=== PATIENT | female | born 1950 | race Caucasian/White ===

== ENCOUNTER 2016-07-23 06:34 | Inpatient (IN) | payer OTHER, MEDICARE ==
[2016-07-18 11:57] LABS: EOSINOPHILS # (AUTO) 0.1 K/uL (0.0-0.4); LYMPHOCYTES # (AUTO) 2.1 K/uL (1.0-5.5); MEAN CORPUSCULAR HEMOGLOBIN 30 pg (27-31)
[2016-07-18 11:59] LABS: CALCIUM 9.1 mg/dL (8.4-11.0); CREATININE 0.79 mg/dL (0.55-1.30); POTASSIUM 4.1 mmol/L (3.5-5.1)
[2016-07-18 12:00] LABS: BASOPHILS % (AUTO) 0.4 % (0.0-2.0); EOSINOPHILS % (AUTO) 1.1 % (0.0-4.0); LYMPHOCYTES % (AUTO) 23.5 % (20.5-51.5); MEAN CORPUSCULAR HGB CONC 33 % (32-36); MEAN CORPUSCULAR VOLUME 89 fL (79.0-98.0); MONOCYTES # (AUTO) 0.5 K/uL (0.0-1.0); MONOCYTES % (AUTO) 5.2 % (1.7-9.3); NEUTROPHILS # (AUTO) 6.3 K/uL (1.8-7.7); NEUTROPHILS % (AUTO) 69.8 % (40.0-70.0); PLATELET COUNT (AUTO) 146 K/uL (130-430); RED BLOOD CELL COUNT(AUTO) 5.06 MIL/uL (4.2-6.2); RED CELL DISTRIBUTION WIDTH 11.8 % (9.0-15.0)
[2016-07-18 12:03] LABS: PROTHROMBIN TIME 10.7 SECS (9.5-12.5)
[2016-07-18 12:09] LABS: BILIRUBIN,URINE NEGATIVE (NEGATIVE); CLARITY/URINE CLEAR (CLEAR); COLOR,URINE YELLOW (YELLOW); GLUCOSE,URINE NEGATIVE (NEGATIVE); KETONES,URINE NEGATIVE (NEGATIVE); LEUKOCYTE ESTERASE ,URINE NEGATIVE (NEGATIVE); NITRITE, URINE NEGATIVE (NEGATIVE); PROTEIN URINE NEGATIVE (NEGATIVE); UROBILINOGEN,URINE 0.2 (0.2-1.0)
[2016-07-18 12:11] LABS: BLOOD, URINE TRACE (NEGATIVE)
[2016-07-18 12:22] LABS: BACTERIA,URINE RARE /HPF (None Seen); RBC,URINE 0-3 /HPF (0-3); WBC,URINE NONE SEEN /HPF (0-3)
[~2016-07-23] VITALS: Ht 167.6 cm; Wt 79.4 kg
[2016-07-23] MEDS ORDERED: CEFAZOLIN SOD 2 GM in D5W 50 ML IV ONE (07:00)
[2016-07-23] MEDS ORDERED: TRANEXAMIC ACID 1,000 MG/10 ML VIAL IV ONE (07:15)
[2016-07-23] MEDS ORDERED: POLYMYXIN 500,000/BACIT.10,000 UNITS in NS IRR 1 L IR ONE (07:43)
[2016-07-23] MEDS ORDERED: DEXAMETHASONE SOD PHOSPHATE 4 MG/ML VIAL IVP ONE (07:54)
[2016-07-23] MEDS ORDERED: LR 1,000 ML IV.SOLN IV ONE (07:54)
[2016-07-23] MEDS ORDERED: fentaNYL CITRATE 250 MCG/5 ML AMP IV ONE (07:54)
[2016-07-23] MEDS ORDERED: SEVOFLURANE 15 MIN GAS INH ONE (07:54)
[2016-07-23] MEDS ORDERED: VANCOMYCIN HCL 1000 MG/VIAL IV ONE (07:54)
[2016-07-23] MEDS ORDERED: MORPHINE SULFATE 10MG/10ML PF AMP EP ONE (07:54)
[2016-07-23] MEDS ORDERED: METOCLOPRAMIDE HCL 10 MG/2 ML VIAL IVP ONE (07:54)
[2016-07-23] MEDS ORDERED: PROPOFOL 200MG/ 20ML VIAL (DIPRIVAN) IV ONE (07:54)
[2016-07-23] MEDS ORDERED: MIDAZOLAM HCL 5 MG/5 ML VIAL IVP ONE (07:54)
[2016-07-23] MEDS ORDERED: METO25TA3 PO (08:12)
[2016-07-23] MEDS ORDERED: ASPI-1063 PO (08:12)
[2016-07-23] MEDS ORDERED: LR 1,000 ML IV ONE (09:40)
[2016-07-23] MEDS ORDERED: KETOROLAC TROMETHAMINE 30 MG VIAL IM PRN (09:45)
[2016-07-23] MEDS ORDERED: NALBUPHINE HCL 10 MG/ML AMP IVP PRN (09:45)
[2016-07-23] MEDS ORDERED: ONDANSETRON HCL 4 MG/2 ML VIAL IVP PRN ×2 (09:45)
[2016-07-23] MEDS ORDERED: NALOXONE HCL 0.4 MG/ML AMP (NARCAN) IVP PRN ×2 (09:45→12:45)
[2016-07-23] MEDS ORDERED: fentaNYL CITRATE/PF 100 MCG/2 ML AMP IVP PRN (09:45)
[2016-07-23] MEDS ORDERED: ePHEDrine sulfate 50 MG/ML VIAL IVP PRN (09:45)
[2016-07-23] MEDS ORDERED: DIPHENHYDRAMINE INJ 50 MG/ML VIAL IVP PRN (09:45)
[2016-07-23] MEDS ORDERED: ACETAMINOPHEN 325 MG TABLET PO PRN (10:30)
[2016-07-23] MEDS ORDERED: DIPHENHYDRAMINE HCL 25 MG CAPSULE PO PRN (10:30)
[2016-07-23] MEDS ORDERED: PROMETHAZINE HCL 25 MG/ML AMP IVP PRN (10:30)
[2016-07-23 11:00] VITALS: BP 99/67; PULSE 74; RESP 17; TEMP 98.4; O2SAT 98
--- NOTE | 2016-07-23 11:18 | NUR ---
POST OP ADMISSION NOTES: REPORT GIVEN AT BEDSIDE BY PACU NURSE CORREA. PATIENT ADMITTED WITH DIAGNOSES OF S/P LEFT TOTAL KNEE ARTHROPLASTY.PT AWAKE,ALERT AND ORIENTED X4. WITH LEFT KNEE DRESSING AND POLAR CARE ATTACHED,DRY AND INTACT. WITH HEMOVAC AT LEFT KNEE,REDDISH COLOR IN THE CONTAINER. WITH MORLEY DRAINING TO YELLOW URINE. IVF ON GOING AT LEFT WRIST INTACT. SCD'S AT RIGHT LOWER EXTREMITY. WITH PILLOW UNDERNEATH LEFT ANKLE.WITH ANTIEMBOLITIC STOCKING ON.PT DENIES ANY PAIN THIS TIME. PLACED PT ON TELEMETRY ORDERED.
--- NOTE | 2016-07-23 11:45 | NUR ---
ADDED NOTES: PATIENT ORIENTED TO CALL LIGHT ,HOSPITAL ROUTINES AND SAFETY MEASURES RENDERED.PT VERBALIZED UNDERSTANDING.
[2016-07-23 11:47] VITALS: BP 99/67; PULSE 74; RESP 17; TEMP 98.3; O2SAT 98
[2016-07-23] MEDS: HYDROMORPHONE PCA 10 mg/50 mL IV PRN (13:27)
--- NOTE | 2016-07-23 13:28 | NUR ---
CONSULT CONSULT WAS CALLED FOR P/O MED MANAGE. SPOKE WITH ANTHONY Salazar
--- NOTE | 2016-07-23 13:30 | NUR ---
business instructor: spinal wears off,pt c/o pain ,business instructor dilaudid started as ordered.
--- NOTE | 2016-07-23 14:35 | NUR ---
rounds: resting.left knee dressing dry and intact. cpm on .pain controlled with vice president network development dilaudid per pt.
--- NOTE | 2016-07-23 15:21 | NUR ---
rounds: pt comfortable.pain controlled with netezza developer dilaudid per patient.
[2016-07-23] MEDS: D5LR 1,000 ML IV SCH ×2 (16:11→20:30)
[2016-07-23] MEDS: CEFAZOLIN 1 GM IVPB PREMIX 50 ML IV SCH ×2 (16:11→21:18)
--- NOTE | 2016-07-23 16:16 | NUR ---
ROUNDS: PATIENT TALKING TO THE PHONE. PAIN CONTROLLED WITH PATENT PARALEGAL DILAUDID PER PATIENT. LEFT KNEE DRESSING DRY AND INTACT.HEMOVAC IN PLACED. NEURO ROB WITH IN NORMAL LIMIT.
[2016-07-23 16:37] VITALS: BP 111/67; PULSE 73; RESP 17; TEMP 97.3; O2SAT 98
--- NOTE | 2016-07-23 17:59 | NUR ---
rounds: dinner tray served by sports manager. with visitor's at bedside.
--- NOTE | 2016-07-23 18:29 | NUR ---
CLOSING NOTES: PATIENT STATED NOT HUNGRY,ENCOURAGE TO ASK FOR SNACKS LATER IF SHE GETS HUNGRY. PAIN CONTROLLED WITH ACCOUNTING OFFICER DILAUDID PER PATIENT. LEFT KNEE CPM ON AND WITH DRY DRESSING INTACT.WITH MORLEY IN SITU. HEMOVAC IN PLACED. IVF ON GOING WITH ACCOUNTING OFFICER DILAUDID IN PLACED. CONTINUE TO MONITOR.CALL LIGHT WITHIN REACH.STABLE.
--- NOTE | 2016-07-23 19:29 | NUR ---
PM ASSESSMENT PT. A/OX4, VITAL SIGNS STABLE, NO DISTRESS NOTED, DENIES PAIN, PT. ON PETROLOGY TEACHER DILAUDID, NOTED WITH DRESSING TO LEFT KNEE, POLAR CARE IN PLACE, CPM IN PLACE, PEDAL PULSES PRESENT, PT. ABLE TO WIGGLE TOES, PT. ABLE TO FLEX AND EXTEND FEET BILATERALLY, NOTED WITH SCD TO R. KNEE, UPDATED WITH PLAN OF CARE, ENCOURAGED PT. TO USE CALL LIGHT FOR ASSISTANCE, CALL LIGHT WITHIN REACH, WILL CONTINUE TO MONITOR.
[2016-07-23 19:55] VITALS: BP 105/66; PULSE 76; RESP 18; TEMP 98.8; O2SAT 96
--- NOTE | 2016-07-23 20:14 | NUR ---
INCENTIVE SPIROMETER ENCOURAGED USE OF INCENTIVE SPIROMETER 10X/HR WHILE AWAKE, PT. ABLE TO DEMONSTRATE PROPER USE UP TO 1500.
[2016-07-23] MEDS ORDERED: SENNOSIDES 8.6 MG TABLET PO PRN (21:00)
--- NOTE | 2016-07-23 22:03 | NUR ---
RN ROUNDS PT. RESTING QUIETLY, VITAL SIGNS STABLE, NO DISTRESS NOTED, DENIES PAIN. REPOSITIONED WITH PILLOW SUPPORT, CALL LIGHT WITHIN REACH, WILL CONTINUE TO MONITOR.
[2016-07-24] VITALS: BP 107/64; PULSE 86; RESP 18; TEMP 99.3
--- NOTE | 2016-07-24 | NUR ---
CPM REMOVED CPM REMOVED SAFELY, PILLOW FOLDED IN HALF AND PLACED UNDER LEFT ANKLE.
--- NOTE | 2016-07-24 01:51 | NUR ---
DESATURATION PT. DESATURATING TO 88% ON ROOM AIR, PT. WAS SLEEPING, PT. WOKEN UP, ENCOURAGED TO TAKE DEEP BREATHS, O2 SAT. WENT UP TO 90%. INITIATED O2 AT 2L VIA NASAL CANNULA, O2 SATURATION WENT UP TO 98%. WILL CONTINUE TO MONITOR.
--- NOTE | 2016-07-24 03:50 | NUR ---
RN ROUNDS PT. RESTING QUIETLY, VITAL SIGNS STABLE, NO DISTRESS NOTED, DENIES PAIN, CALL LIGHT WITHIN REACH, WILL CONTINUE TO MONITOR.
[2016-07-24 04:00] VITALS: BP 103/63; PULSE 83; RESP 18; TEMP 98.7; O2SAT 96
[2016-07-24] MEDS: D5LR 1,000 ML IV SCH ×2 (05:17→16:58)
[2016-07-24] MEDS: CEFAZOLIN 1 GM IVPB PREMIX 50 ML IV SCH (05:17)
--- NOTE | 2016-07-24 05:30 | NUR ---
RN ROUNDS PT. RESTING QUIETLY, VITAL SIGNS STABLE, NO DISTRESS NOTED, DENIES PAIN, CALL LIGHT WITHIN REACH, WILL CONTINUE TO MONITOR.
--- NOTE | 2016-07-24 06:26 | NUR ---
CLOSING NOTES PT. RESTING QUIETLY, VITAL SIGNS STABLE, NO DISTRESS NOTED, DENIES PAIN, MORLEY CATHETER IN PLACE, PILLOW IN PLACE TO LEFT ANKLE, POLAR CARE IN PLACE. CALL LIGHT WITHIN REACH.
[2016-07-24 06:37] LABS: CALCIUM 8.1 mg/dL (8.4-11.0); CREATININE 0.73 mg/dL (0.55-1.30); POTASSIUM 3.4 mmol/L (3.5-5.1)
[2016-07-24 07:03] LABS: HEMATOCRIT 33.8 % (36-48); HEMOGLOBIN 11.4 g/dL (12.0-16.0); MEAN CORPUSCULAR HEMOGLOBIN 30 pg (27-31); MEAN CORPUSCULAR HGB CONC 34 % (32-36); MEAN CORPUSCULAR VOLUME 90 fL (79.0-98.0); PLATELET COUNT (AUTO) 126 K/uL (130-430); RED BLOOD CELL COUNT(AUTO) 3.75 MIL/uL (4.2-6.2); RED CELL DISTRIBUTION WIDTH 12.1 % (9.0-15.0)
[2016-07-24 07:29] LABS: WHITE BLOOD COUNT (AUTO) 12.9 K/uL (4.8-10.8)
[2016-07-24 08:00] VITALS: BP 111/68; PULSE 86; RESP 20; TEMP 98; O2SAT 93
--- NOTE | 2016-07-24 08:00 | NUR ---
OPENING NOTE PATIENT IS AWAKE, BUT DROWSY. REPORTS PAIN AT A TOLERABLE LEVEL WHEN RESTING. NO SIGNS OF DISTRESS. 20 VIA NC NEEDED. PT IS 93% ON ROOM AIR. LUNGS ARE CLEAR, REEDUCATED ON USE OF IS MACHINE.
[2016-07-24] MEDS ORDERED: POTASSIUM CHLORIDE 20 MEQ/PKT PACKET PO ONE (08:15)
[2016-07-24] MEDS ORDERED: ASPIRIN 81 MG TABLET(ECOTRIN) PO SCH (09:00)
[2016-07-24] MEDS: HYDROcodone/ACETAMIN 7.5-325 MG TAB PO PRN (09:03)
[2016-07-24] MEDS: RIVAROXABAN 10 MG TABLET PO SCH (09:04)
[2016-07-24] MEDS: METOPROLOL SUCCINATE 25 MG TAB.SR.24H (TOPROL XL) PO SCH (09:04)
[2016-07-24] MEDS: ASPIRIN 81 MG TABLET(ECOTRIN) PO SCH (09:04)
--- NOTE | 2016-07-24 09:30 | NUR ---
PATIENT AMBULATED WITH WALKER FROM BED TO WALL ACROSS DUNN FROM ROOM WITH PT. PT BECAME PALE, DIAPHORETIC AND WEAK AND WAS PLACED IN A CHAIR. SBP IN 70'S. PLACED IN BED SBP AT 94. 10 MINUTES LATER SPB OVER 100 AND PATIENT REPORTED FEELING BETTER. DENIES ANY NAUSEA, CHEST PAIN, FAINTNESS OR OTHER SUBJECTIVE SYMPTOMS
--- NOTE | 2016-07-24 09:39 | NUR ---
Nutrition Update Ish Scale 18 noted. Pt admitted for osteoarthritis L knee. Diet: regular BMI: 28.2 kg/m2 RD to follow per nutrition care standards.
[2016-07-24 09:52] LABS: ATYPICAL LYMPHOCYTES % 0 % (0-0); BAND % (MANUAL) 0 % (0-6); BASOPHILS % (MANUAL) 0 % (0-2); EOSINOPHILS % (MANUAL) 0 % (0-7); LYMPHOCYTES % (MANUAL) 8 % (20-46); MONOCYTES % (MANUAL) 7 % (0-11)
--- NOTE | 2016-07-24 09:52 | NUR ---
DISCHARGE PLANNING DC planning order to arrange home PT, CPM, FWW, and commode. CM met with patient. [facility]ed [facility] order [phone] for CPM and FWW requesting to be delivered to patient home. Home Health PT pending additional PT notes. DCP will follow up. Addendum: 07/24/16 at 6568 by Indira KRUEGER Spoke with Sheridan in intake dept at [facility] who stated CPM not covered benefit under Medicare. RX order will be faxed requesting for signature. Once signed Rx order has been received delivery arrangements can be made.
--- NOTE | 2016-07-24 12:00 | NUR ---
PATIENT PLACED ON CPM MACHINE BY PT/ TO BE ON UNTIL 2300
[2016-07-24 12:29] VITALS: BP 101/66; PULSE 84; RESP 16; TEMP 98.7; O2SAT 97
--- NOTE | 2016-07-24 13:55 | NUR ---
DR CERVANTES NOTIFIED OF PATIENT'S MRSA COLONIZATION. PATIENT MADE AWARE OF SITUATION BY RN. NO NEW ORDERS GIVEN.
--- NOTE | 2016-07-24 15:15 | NUR ---
PHYSICAL THERAPY CO-SIGN The Physical Therapy Progress Notes documented by Hand Ii Tube Bender have been reviewed. Pt IS SHOWING PROGRESS WITH POC; CONT PER TX PLAN Reviewed/Co-Signed by: Talia Eugene PT Documentation Done by: ADOLFO POWERS KALSOMINER Addendum: 07/24/16 at 1515 by Talia Eugene PT Amended: Links added.
[2016-07-24 16:12] VITALS: BP 114/77; PULSE 93; RESP 18; TEMP 97.4; O2SAT 94
--- NOTE | 2016-07-24 16:58 | NUR ---
PATIENT HAS BEEN SLEEPING FOR MOST OF DAY. EASILY AROUSABLE AND WILL USE IS MACHINE INTERMITTENTLY. HAS BEEN AT BEDSIDE THROUGHOUT THE DAY.
--- NOTE | 2016-07-24 19:15 | NUR ---
PM ASSESSMENT PT. STARTED VOMITING LARGE AMOUNT OF BROWN EMESIS, HOB ELEVATED, TOWELS PROVIDED, VITAL SIGNS STABLE, WILL GIVE ZOFRAN. NOTED WITH FOOT SETTER DILAUDID, PT. STATED HER PAIN LEVEL IS 6/10 TO HER LEFT KNEE AND SHE WILL PRESS HER FOOT SETTER BUTTON. NOTED WITH LEFT KNEE DRESSING AND POLAR CARE, NOTED WITH SCD TO RIGHT LOWER LEG, MORLEY DRAINING WELL TO GRAVITY. CALL LIGHT WITHIN REACH, WILL CONTINUE TO MONITOR.
[2016-07-24 20:00] VITALS: BP 106/61; PULSE 80; RESP 18; TEMP 99; O2SAT 94
[2016-07-24] MEDS: ONDANSETRON HCL 4 MG/2 ML VIAL IVP PRN (20:12)
--- NOTE | 2016-07-24 20:12 | NUR ---
NAUSEA/VOMITING PT. VOMITED LARGE AMOUNT OF BROWN EMESIS AT CHANGE OF SHIFT, BED BATH DONE, NEW GOWN APPLIED, NEW BED SHEETS APPLIED, ZOFRAN 4 MG IVP GIVEN.
--- NOTE | 2016-07-24 22:00 | NUR ---
RN ROUNDS PT. RESTING QUIETLY, VITAL SIGNS STABLE, NO DISTRESS NOTED, DENIES PAIN, DENIES NAUSEA, WILL CONTINUE TO MONITOR.
--- NOTE | 2016-07-25 | NUR ---
RN ROUNDS PT. RESTING QUIETLY, VITAL SIGNS STABLE, NO DISTRESS NOTED, DENIES PAIN, DENIES NAUSEA, WILL CONTINUE TO MONITOR.
[2016-07-25 01:53] VITALS: BP 95/53; PULSE 53; RESP 17; TEMP 97.8; O2SAT 96
--- NOTE | 2016-07-25 02:00 | NUR ---
RN ROUNDS PT. RESTING QUIETLY, VITAL SIGNS STABLE, NO DISTRESS NOTED, DENIES PAIN, DENIES NAUSEA, REPOSITIONED WITH PILLOW SUPPORT, CALL LIGHT WITHIN REACH, WILL CONTINUE TO MONITOR.
[2016-07-25] MEDS: D5LR 1,000 ML IV SCH ×3 (03:28→20:42)
[2016-07-25] MEDS: HYDROMORPHONE PCA 10 mg/50 mL IV PRN (03:37)
[2016-07-25] MEDS: ONDANSETRON HCL 4 MG/2 ML VIAL IVP PRN (03:39)
--- NOTE | 2016-07-25 03:39 | NUR ---
NAUSEA PT. C/O NAUSEA, ZOFRAN 4 MG IVP GIVEN ORDERED. WILL CONTINUE TO MONITOR.
[2016-07-25 03:44] VITALS: BP 99/57; PULSE 77; RESP 18; TEMP 98.6; O2SAT 98
--- NOTE | 2016-07-25 06:26 | NUR ---
CLOSING NOTES PT. RESTING QUIETLY, VITAL SIGNS STABLE, NO DISTRESS NOTED, DENIES PAIN, DENIES NAUSEA, REPOSITIONED WITH PILLOW SUPPORT.
[2016-07-25 06:45] LABS: CALCIUM 8.3 mg/dL (8.4-11.0); CREATININE 0.58 mg/dL (0.55-1.30); POTASSIUM 3.3 mmol/L (3.5-5.1)
[2016-07-25 07:28] LABS: BASOPHILS % (AUTO) 0.2 % (0.0-2.0); HEMATOCRIT 33.1 % (36-48); LYMPHOCYTES % (AUTO) 6.1 % (20.5-51.5); MEAN CORPUSCULAR HEMOGLOBIN 30 pg (27-31); MEAN CORPUSCULAR HGB CONC 33 % (32-36); MEAN CORPUSCULAR VOLUME 89 fL (79.0-98.0); MONOCYTES # (AUTO) 0.8 K/uL (0.0-1.0); MONOCYTES % (AUTO) 5.4 % (1.7-9.3); NEUTROPHILS # (AUTO) 13.8 K/uL (1.8-7.7); NEUTROPHILS % (AUTO) 88.3 % (40.0-70.0); RED BLOOD CELL COUNT(AUTO) 3.72 MIL/uL (4.2-6.2); RED CELL DISTRIBUTION WIDTH 11.8 % (9.0-15.0)
[2016-07-25 07:38] LABS: WHITE BLOOD COUNT (AUTO) 15.6 K/uL (4.8-10.8)
[2016-07-25 08:00] VITALS: BP 103/69; PULSE 91; RESP 18; TEMP 98.1; O2SAT 94
[2016-07-25] MEDS ORDERED: HYDROmorphone 1 MG INJ. 1 MG/ML AMPUL IVP PRN (08:00)
--- NOTE | 2016-07-25 08:00 | NUR ---
PATIENT A/OX4. IV ON LEFT WRIST, #20, INFUSING D5LR AT 100ML/HR. F/C IN PLACE, CLINICAL PROGRAM COORDINATOR IS STILL ON. CALL LIGHT IN PLACE, BED LOCKED AT LOWEST POSITION, WILL CONTINUE TO MONITOR.
[2016-07-25] MEDS: ASPIRIN 81 MG TABLET(ECOTRIN) PO SCH (08:50)
[2016-07-25] MEDS: RIVAROXABAN 10 MG TABLET PO SCH (08:50)
[2016-07-25] MEDS: METOPROLOL SUCCINATE 25 MG TAB.SR.24H (TOPROL XL) PO SCH (09:00)
[2016-07-25] MEDS ORDERED: IPRATROPIUM BROM 0.5 MG/2.5 ML VIAL.NEB (ATROVENT) INH PRN (09:30)
[2016-07-25] MEDS ORDERED: ALBUTEROL SULFATE 0.083% 2.5 MG/3 ML VIAL.NEB INH PRN (09:30)
--- NOTE | 2016-07-25 09:35 | NUR ---
F/C REMOVED, STEAM CLEANER D/C PER DR ORDER.
[2016-07-25 10:02] LABS: PLATELET COUNT (AUTO) 116 K/uL (130-430)
--- NOTE | 2016-07-25 10:06 | NUR ---
[phone] spoke with Zuleika in intake dept who will have RX order request to be signed. Will follow up. Addendum: 07/25/16 at 1127 by Indira Landin DP Spoke with Sheridan in intake dept at [facility]. Confirmed faxed RX order received and copy placed in patient chart and faxed to Dr Purvis office requesting signature. DCP will fax back once signed RX order has been received. ROSLYN Singer was made aware. Addendum: 07/25/16 at 6692 by Indira Landin DP Confirmed with farm owner operator at Dr Purvis office faxed order for FWW was received and will have sign and fax back. Faxed home health referral to [facility] [phone]. Will follow up.
[2016-07-25 11:09] VITALS: PULSE 78
[2016-07-25] MEDS: ALBUTEROL SULFATE 0.083% 2.5 MG/3 ML VIAL.NEB INH SCH ×4 (11:09→23:00)
[2016-07-25] MEDS: IPRATROPIUM BROM 0.5 MG/2.5 ML VIAL.NEB (ATROVENT) INH SCH ×4 (11:09→23:00)
[2016-07-25] MEDS: HYDROcodone/ACETAMIN 7.5-325 MG TAB PO PRN ×2 (11:13→23:26)
--- NOTE | 2016-07-25 12:00 | NUR ---
1200 V/S REFUSED PT WAS SLEEPING. FAMILY ASKED IF PT COULD REST AND DO NOT BE DISTURBED FOR V/S. ROSLYN SCHULTZ IS NOTIFIED AND AWARE.
[2016-07-25] MEDS: LEVOFLOXACIN 500 MG/D5W 100 ML IV SCH (14:26)
--- NOTE | 2016-07-25 15:27 | NUR ---
PHYSICAL THERAPY CO-SIGN The Physical Therapy Progress Notes documented by Lime Spreader have been reviewed. I CONCUR W/RANCH SUPERVISOR NOTE; CONT PER TX PLAN Reviewed/Co-Signed by: Talia Eugene PT Documentation Done by: ADOLFO POWERS RANCH SUPERVISOR Addendum: 07/25/16 at 1528 by Talia Eugene PT Amended: Links added.
--- NOTE | 2016-07-25 17:20 | NUR ---
K AT 3.3. DR. CERVANTES IS CALLED, AWAITING CALL BACK.
--- NOTE | 2016-07-25 18:00 | NUR ---
PATIENT IS OFFERED WITH DINNER, BUT SHE STATES SHE HAS NO APPETITE. WILL ENCOURAGE HER TO EAT LATER.
[2016-07-25] MEDS ORDERED: POTASSIUM CHLORIDE 20 MEQ TAB.PRT.SR PO ONE (18:30)
--- NOTE | 2016-07-25 18:30 | NUR ---
DR. CERVANTES CALLED BACK AND GAVE ORDERS. PATIENT STILL REFUSING TO EAT AT THIS TIME. WILL ENDORSE TO NEXT SHIFT.
--- NOTE | 2016-07-25 20:00 | NUR ---
ROUNDS PATIENT RESTING COMFORTABLY IN BED, NOT IN DISTRESS, VITALS STABLE, DENIES ANY PAIN AND DISCOMFORT AT THIS TIME. ASSESSMENT DONE AND DOCUMENTED. SEE FLOWSHEET. NEEDS ATTENDED TO. REPOSITIONED AND MADE COMFORTABLE. SAFETY AND FALL MEASURES IN PLACED. CALL LIGHT PLACED WITHIN REACH.
--- NOTE | 2016-07-25 21:30 | NUR ---
PATIENT RESTING: Patient resting quietly. No acute distress noted. Vital signs within normal range.
--- NOTE | 2016-07-26 | NUR ---
PATIENT RESTING: Patient resting quietly. No acute distress noted. Vital signs within normal range.
[2016-07-26 00:52] VITALS: BP 128/78; PULSE 81; RESP 19; TEMP 97.7; O2SAT 99
[2016-07-26] MEDS: IPRATROPIUM BROM 0.5 MG/2.5 ML VIAL.NEB (ATROVENT) INH SCH ×6 (03:00→23:00)
[2016-07-26] MEDS: ALBUTEROL SULFATE 0.083% 2.5 MG/3 ML VIAL.NEB INH SCH ×6 (03:00→23:00)
--- NOTE | 2016-07-26 04:40 | NUR ---
PATIENT RESTING: Patient resting quietly. No acute distress noted. Vital signs within normal range.
[2016-07-26 04:59] VITALS: BP 119/61; PULSE 76; RESP 19; TEMP 97.2; O2SAT 94
[2016-07-26 06:32] LABS: CALCIUM 8.5 mg/dL (8.4-11.0); CREATININE 0.58 mg/dL (0.55-1.30); POTASSIUM 3.2 mmol/L (3.5-5.1)
[2016-07-26 06:46] LABS: BASOPHILS % (AUTO) 0.2 % (0.0-2.0); EOSINOPHILS % (AUTO) 0.1 % (0.0-4.0); HEMATOCRIT 30.8 % (36-48); HEMOGLOBIN 10.5 g/dL (12.0-16.0); LYMPHOCYTES % (AUTO) 7.3 % (20.5-51.5); MEAN CORPUSCULAR HEMOGLOBIN 30 pg (27-31); MEAN CORPUSCULAR HGB CONC 34 % (32-36); MEAN CORPUSCULAR VOLUME 88 fL (79.0-98.0); MONOCYTES % (AUTO) 7.6 % (1.7-9.3); NEUTROPHILS # (AUTO) 11.3 K/uL (1.8-7.7); NEUTROPHILS % (AUTO) 84.8 % (40.0-70.0); PLATELET COUNT (AUTO) 102 K/uL (130-430); RED CELL DISTRIBUTION WIDTH 11.6 % (9.0-15.0); WHITE BLOOD COUNT (AUTO) 13.3 K/uL (4.8-10.8)
--- NOTE | 2016-07-26 06:50 | NUR ---
CLOSING NOTES PATIENT AWAKE, VITALS STABLE, DENIES ANY PAIN AND DISCOMFORT AT THIS TIME. ALL NEEDS ATTENDED TO. CALL LIGHT PLACED WITHIN REACH.
--- NOTE | 2016-07-26 08:00 | NUR ---
initial notes rec patient awake laert with hob elevated. iv on the l wrist infiltrated and will restart. dressing of cari bandage on the l knee intact. no bleeding noted. toes moving freely and warm to touch. resp easy and unlabored. fall/ safety precaution reinforced. call light within reached and knows when to call for assistance.
[2016-07-26] MEDS: HYDROcodone/ACETAMIN 7.5-325 MG TAB PO PRN ×2 (09:09→22:52)
[2016-07-26] MEDS: ASPIRIN 81 MG TABLET(ECOTRIN) PO SCH (09:10)
[2016-07-26] MEDS: D5LR 1,000 ML IV SCH (09:10)
[2016-07-26] MEDS: METOPROLOL SUCCINATE 25 MG TAB.SR.24H (TOPROL XL) PO SCH (09:10)
--- NOTE | 2016-07-26 09:20 | NUR ---
DISCHARGE PLANNING Called [facility] [phone] intake dept will return call to confirm faxed home health order was received. ROSLYN Hernandez made aware RX order for FWW in patient chart pending MD signature and will notify DCP once signed. Meanwhile; RX order for FWW was faxed to Dr Purvis office called [phone] confirmed faxed order was received and still pending MD signature. Called [facility] [phone] spoke with Sheridan in intake dept who stated faxed signed order has not been received. Sheridan requested signed order be faxed directly to her at [facility] [phone]. DCP will continue to follow up. Addendum: 07/26/16 at 1247 by Indira Landin DP Faxed signed Rx order for F[facility] to [facility]. DCP will follow up. Met with patient at bedside who requested FWW to be delivered to hospital for discharge. Addendum: 07/26/16 at 1423 by Indira Landin DP [facility] today between 6-8pm. Sheridan requested DC Summary to be faxed when available. Spoke with Urban at [facility] who will have nursing staff call patient in AM to schedule visit upon patient discharge.
--- NOTE | 2016-07-26 10:00 | NUR ---
rounds seen by dr roberts and with orders. was up with pt and addi well and was taken also to pt dept and practice stair climbing.
[2016-07-26] MEDS ORDERED: POTASSIUM CHLORIDE 40 MEQ, LIDOCAINE JECT 2% PF 100 MG 50 MG in NS 250 ML IV ONE (10:45)
[2016-07-26 11:59] VITALS: BP 125/66; PULSE 82; RESP 17; TEMP 98; O2SAT 98
[2016-07-26] MEDS: RIVAROXABAN 10 MG TABLET PO SCH (12:13)
--- NOTE | 2016-07-26 12:19 | NUR ---
rounds seen by dr bryant and changed dressing. incision looks dry clean. denies pain at this time.
[2016-07-26] MEDS: LEVOFLOXACIN 500 MG/D5W 100 ML IV SCH (12:54)
[2016-07-26] MEDS: METOCLOPRAMIDE HCL 10 MG/2 ML VIAL IVP SCH ×3 (12:56→22:51)
--- NOTE | 2016-07-26 14:13 | NUR ---
rounds uses the bedpan at intervals with large amount of urine. polar care to the l eft knee in place.
[2016-07-26 16:46] VITALS: BP 119/62; PULSE 89; RESP 16; TEMP 97.6; O2SAT 98
--- NOTE | 2016-07-26 18:30 | NUR ---
closing notes k rider completed without any reaction. denies pain at this time. cpm iintact and will endorsed to be removed at 2200. polar care intact to the l knee. voiding freely at intervals using the bedpan to large amount of aditya output.
--- NOTE | 2016-07-26 19:00 | NUR ---
closing notes iv pulled out iv line. will endorsed to night nurse. small bowel follow through pending. awaiting for Appointedd to call me. will also endorsed mg citrate to be given when small bowel follow through test is completed. dr brooke is here to see patient. bed in low position and close to the nurses station. Addendum: 07/26/16 at 1913 by Svitlana Beltran RN intended for another patient.
--- NOTE | 2016-07-26 20:00 | NUR ---
ROUNDS PATIENT RESTING COMFORTABLY IN BED, VITALS STABLE, DENIES ANY PAIN AND DISCOMFORT AT THIS TIME. ASSESSMENT DONE AND DOCUMENTED. SEE FLOWSHEET. NEEDS ATTENDED TO. REPOSITIONED AND MADE COMFORTABLE. SAFETY AND FALL PRECAUTION MEASURES IN PLACED. FAMILY AT THE BEDSIDE. CALL LIGHT PLACED WITHIN REACH.
--- NOTE | 2016-07-26 22:55 | NUR ---
MEDICATION DUE MEDICATION GIVEN SCHEDULED, TOLERATED WELL. WILL CONTINUE TO MONITOR.
[2016-07-27 00:07] VITALS: BP 114/71; PULSE 98; RESP 18; TEMP 98.6; O2SAT 98
--- NOTE | 2016-07-27 00:10 | NUR ---
PATIENT RESTING: Patient resting quietly. No acute distress noted. Vital signs within normal range.
--- NOTE | 2016-07-27 02:15 | NUR ---
ROUNDS PATIENT ASLEEP, NO SOB NOTED, WILL CONTINUE TO MONITOR.
--- NOTE | 2016-07-27 04:10 | NUR ---
PATIENT RESTING: Patient resting quietly. No acute distress noted. Vital signs within normal range.
[2016-07-27 04:30] VITALS: BP 110/74; PULSE 87; RESP 18; TEMP 98; O2SAT 92
[2016-07-27] MEDS: METOCLOPRAMIDE HCL 10 MG/2 ML VIAL IVP SCH ×2 (06:02→15:59)
[2016-07-27 06:49] LABS: CALCIUM 8.4 mg/dL (8.4-11.0); CREATININE 0.56 mg/dL (0.55-1.30)
--- NOTE | 2016-07-27 06:52 | NUR ---
CLOSING NOTES PATIENT AWAKE, VITALS STABLE, DENIES ANY PAIN AND DISCOMFORT AT THIS TIME. ALL NEEDS ATTENDED TO. SAFETY MEASURES MAINTAINED. CALL LIGHT PLACED WITHIN REACH.
[2016-07-27 06:58] LABS: BASOPHILS # (AUTO) 0.1 K/uL (0.0-0.2); BASOPHILS % (AUTO) 0.7 % (0.0-2.0); EOSINOPHILS % (AUTO) 0.4 % (0.0-4.0); HEMATOCRIT 31.1 % (36-48); HEMOGLOBIN 10.1 g/dL (12.0-16.0); LYMPHOCYTES # (AUTO) 1.6 K/uL (1.0-5.5); LYMPHOCYTES % (AUTO) 16.9 % (20.5-51.5); MEAN CORPUSCULAR HEMOGLOBIN 29 pg (27-31); MEAN CORPUSCULAR HGB CONC 32 % (32-36); MEAN CORPUSCULAR VOLUME 90 fL (79.0-98.0); MONOCYTES # (AUTO) 0.8 K/uL (0.0-1.0); MONOCYTES % (AUTO) 8.2 % (1.7-9.3); NEUTROPHILS % (AUTO) 73.8 % (40.0-70.0); POTASSIUM 2.9 mmol/L (3.5-5.1); RED BLOOD CELL COUNT(AUTO) 3.46 MIL/uL (4.2-6.2); RED CELL DISTRIBUTION WIDTH 11.8 % (9.0-15.0)
--- NOTE | 2016-07-27 07:18 | NUR ---
CALLED ATTENDING MD, DR VELEZ, SENIOR GEOLOGIST FOR DR CERVANTES, RE: CRITICAL K LEVEL
[2016-07-27 07:36] LABS: WHITE BLOOD COUNT (AUTO) 9.5 K/uL (4.8-10.8)
[2016-07-27] MEDS ORDERED: POTASSIUM CHLORIDE 20 MEQ TAB.PRT.SR PO SCH (08:00)
--- NOTE | 2016-07-27 08:00 | NUR ---
initial notes rec patient awake alert with ivf infusing well on the l forearm. no infiltration noted. hob elevated with no acute distress noted. dressing on the l knee in place and no beeding noted. toes moving freely and warm to touch. bed in low position and side rails up and locked , call light within reached . will continue to monitor patient.
[2016-07-27] MEDS: D5LR 1,000 ML IV SCH (08:21)
[2016-07-27] MEDS ORDERED: POTASSIUM CHLORIDE 40 MEQ, LIDOCAINE JECT 2% PF 100 MG 50 MG in NS 250 ML IV ONE ×2 (08:45→13:00)
[2016-07-27] MEDS: ALBUTEROL SULFATE 0.083% 2.5 MG/3 ML VIAL.NEB INH SCH ×4 (09:08→19:00)
[2016-07-27] MEDS: IPRATROPIUM BROM 0.5 MG/2.5 ML VIAL.NEB (ATROVENT) INH SCH ×4 (09:08→19:00)
[2016-07-27] MEDS: HYDROcodone/ACETAMIN 7.5-325 MG TAB PO PRN ×2 (09:09→17:08)
[2016-07-27 09:27] LABS: PLATELET COUNT (AUTO) 171 K/uL (130-430)
[2016-07-27] MEDS: ASPIRIN 81 MG TABLET(ECOTRIN) PO SCH (09:41)
[2016-07-27] MEDS: METOPROLOL SUCCINATE 25 MG TAB.SR.24H (TOPROL XL) PO SCH (09:42)
[2016-07-27] MEDS: LEVOFLOXACIN 500 MG/D5W 100 ML IV SCH (09:44)
--- NOTE | 2016-07-27 10:00 | NUR ---
rounds was seen by dr roberts and changed order on the k to ivpb rider will start when available. no acute distress noted,
[2016-07-27] MEDS: RIVAROXABAN 10 MG TABLET PO SCH (11:47)
--- NOTE | 2016-07-27 12:00 | NUR ---
rubina fontana well. no c/o pain on her iv site. no acute distress. call light withn reached.
[2016-07-27 12:17] VITALS: BP 108/70; PULSE 92; RESP 16; TEMP 97.4; O2SAT 92
--- NOTE | 2016-07-27 14:00 | NUR ---
rubina melissa in progress. no sob noted. in the room with patient. no acute distress noted.
--- NOTE | 2016-07-27 14:45 | NUR ---
PHYSICAL THERAPY CO-SIGN The Physical Therapy Progress Notes documented by Chief Librarian Work With Blind have been reviewed. Reviewed/Co-Signed by: Crystal Tuttle PT Documentation Done by: Alec Medina PTA I concur with the AM and PM documentation of this SPANISHER. Patient is for possible DC to home later today. Addendum: 07/27/16 at 1456 by Crystal Tuttle PT Amended: Links added.
--- NOTE | 2016-07-27 15:54 | NUR ---
DISCHARGE PLANNING Returned call to Sheridan at [facility] [phone] who requested DC Summary to be faxed. DCP will fax when available.
--- NOTE | 2016-07-27 16:00 | NUR ---
rounds 2nd bag of k rider in progress. no c/o pain offered. sleeps at intervals.
[2016-07-27 16:29] VITALS: BP 115/78; PULSE 83; RESP 16; TEMP 97.7; O2SAT 95
--- NOTE | 2016-07-27 17:00 | NUR ---
rounds spoke with gisela case management and stated that cpm is not covered by her insurance. dr mikayla mobley covering for dr bryant was called and stated okay to go home without the cpm for now but to call dr bryant on sat re the cpm. patient was made aware re the cpm not being covered.
--- NOTE | 2016-07-27 17:54 | NUR ---
CALLED DR GARRETT RE: CPM NOT COVERED BY THE INSURANCE. SPOKE TO SHARAN Addendum: 07/27/16 at 1757 by Diana Pena UT/ DR TOBIAS ASPHALT PAVER FOR DR GARRETT
--- NOTE | 2016-07-27 19:01 | NUR ---
closing notes sleeping but aorusable to stimuli. k rider still in progress. will endorsed re iv will be done about 8 pm and will be d/c if k >3.3. no acute distress noted.
--- NOTE | 2016-07-27 19:25 | NUR ---
initial nursing notes: Patient awake in bed. Patient has Potassium IV infusing on her left forearm IV access . Patient has a CPM machine. Patient is waiting to be discharged when Potassium level is within normal limits.
[2016-07-27 20:13] VITALS: BP 108/65; PULSE 88; RESP 17; TEMP 97.2; O2SAT 95
[2016-07-27] MEDS ORDERED: LACTOBACILLUS RHAMNOSUS GG 1 CAP CAPSULE PO SCH (21:00)
--- NOTE | 2016-07-27 21:25 | NUR ---
nursing rounds: Patient is getting ready to go home. Patient denies of having pain.
[2016-07-27 21:37] LABS: CALCIUM 8.2 mg/dL (8.4-11.0); CREATININE 0.66 mg/dL (0.55-1.30); POTASSIUM 3.9 mmol/L (3.5-5.1)
[2016-07-27 22:06] VITALS: BP 108/73; PULSE 91; RESP 18; TEMP 98.5; O2SAT 97
--- NOTE | 2016-07-27 22:10 | NUR ---
paged paged for Dr Park, dialed . picked up the call himself.
--- NOTE | 2016-07-27 22:50 | NUR ---
D/C Patient Patient given medication reconciliation form and D/C instructions. Exit Care provided. Patient verbalized understanding. MD discussed with patient the results and treatment provided. Ambulatory with steady gait for discharge to home. Patient in stable condition, ID band removed. IV catheter removed, intact and dressing applied, no active bleeding. Rx of [] given. Patient educated on pain management. All belongings sent with patient.
--- NOTE | 2016-08-01 16:13 | NUR ---
Discharge Follow Up Phone Call: ART OBJECTS SUPERVISOR called and spoke with pt ([phone]). Pt states that she is doing well; pt's prescription has been filled; there are no questions regarding discharge or medication instructions; pt has a follow up appointment scheduled with Dr. Purvis; pt received first home health visit on 07/30/16; pt received FWW while in the hospital. Pt did not express any other needs or concerns and denied the need for additional follow up at this time. No further follow up phone calls required at this time.
== END 2016-07-27 22:50 | disposition home health service (06) | DRG 470 ==
LOC: SMU 06:34 → STU 12:42 → SMU 07-25 20:36
PROVIDERS: ADMIT Orthopaedic Surgery; ATTEND Orthopaedic Surgery
PROC: 0SRD0J9 Replacement of Left Knee Joint with Synthetic Substitute, Cemented, Open Approach (ICD-10-PCS; principal; 2016-07-23 08:30)
DX: M17.12 Unilateral primary osteoarthritis, left knee (principal); E87.1 Hypo-osmolality and hyponatremia; I10 Essential (primary) hypertension; D72.829 Elevated white blood cell count, unspecified; K59.00 Constipation, unspecified; K30 Functional dyspepsia; E87.6 Hypokalemia; Z79.82 Long term (current) use of aspirin; Z86.73 Personal history of transient ischemic attack (TIA), and cerebral infarction without residual deficits; Z22.322 Carrier or suspected carrier of Methicillin resistant Staphylococcus aureus
CPT/HCPCS: 36415; 71010; 71020-TC; 80048; 81000-TC; 83735-TC; 85007; 85025; 85027; 85610-TC; 85730-TC; 87081; 88305; 88311; 94640; 94760; 97039; 97110-GP; 97116-GP; 97530-GP; C1713; C1776; J0690; J1100; J1170; J1956; J2250; J2274; J2405; J2704; J2765; J3010; J3370; J3480; J3490; J7042; J7050; J7060; J7120